=== PATIENT | male | born 1955 | race Caucasian/White ===

== ENCOUNTER 2023-08-01 10:18 | Emergency (ER) | payer BC, OTHER ==
[~2023-08-01] VITALS: Ht 175.3 cm; Wt 82.1 kg
[2023-08-01] MEDS ORDERED: CYCLOBENZAPRINE 10 MG TABLET PO ONE (11:30)
[2023-08-01] MEDS ORDERED: KETOROLAC TROMETHAMINE INJ 30 MG/ML VIAL IM ONE (11:30)
[2023-08-01] MEDS ORDERED: CYCL10TA9 PO (11:35)
[2023-08-01] MEDS ORDERED: KETOROLAC TROMETHAMINE INJ 30 MG/ML VIAL ONE (11:39)
[2023-08-01] MEDS ORDERED: CYCLOBENZAPRINE 10 MG TABLET ONE (11:39)
[2023-08-01 11:55] VITALS: BP 136/75; TEMP 98.2; O2SAT 100
== END 2023-08-01 11:55 | disposition home or self-care (01) ==
LOC: ER 10:20
DX: S39.011A Strain of muscle, fascia and tendon of abdomen, initial encounter (principal); M54.50 Low back pain, unspecified; I10 Essential (primary) hypertension; W01.0XXA Fall on same level from slipping, tripping and stumbling without subsequent striking against object, initial encounter; Y93.89 Activity, other specified; Y92.89 Other specified places as the place of occurrence of the external cause; Y99.8 Other external cause status
CPT/HCPCS: 99283; 96372; J1885